=== PATIENT | male | born 1960 | race Caucasian/White ===

== ENCOUNTER 2021-07-13 13:34 | Emergency (ER) | payer MEDICAID, SELFPAY ==
[2021-07-13] VITALS (7 sets, daily range): BP systolic 101–117; BP diastolic 69–80; PULSE 64–95; RESP 16–23; TEMP 36.8–39; O2SAT 91–97; BMI 28.7
--- NOTE | 2021-07-13 15:03 | XR_ITS ---
WS: [id number] XR chest 1V portable [id number] REASON FOR EXAM: covid, sob FINDINGS: The heart and mediastinum are within normal limits. Reticular and groundglass lung opacities in the left lower lung field most predominantly and similar abnormality in the peripheral right lower lung field. Degenerative spondylosis, moderate, in the mid and lower thoracic spine. XR/XR chest 1V portable [id number] IMPRESSION: Pulmonary opacities of unknown chronicity but very compatible with subacute Cov id pneumonitis.
[2021-07-13 17:10] LABS: Basophils % 0.2 %; Hematocrit 50.5 % (42.0-52.0); Hemoglobin 17.4 g/dL (11.7-16.6); Lymphocytes # 0.3 10^3/uL (0.8-4.8); Lymphocytes % 6.6 %; Mean Corpuscular HGB Conc 34.5 g/dL (30.0-36.0); Mean Corpuscular Hemoglobin 29.1 pg (28.0-34.0); Mean Corpuscular Volume 84.4 fl (80-94); Monocytes # 0.3 10^3/uL (0.2-0.9); Monocytes % 6.1 %; Neutrophils % 86.7 %; Nucleated Red Blood Cells % 0 %; Platelet Count 131 10^3/cmm (130-400); Red Blood Count 5.98 10^6/uL (4.1-5.3); Red Cell Distribution Width 12.1 % (12.1-15.1); White Blood Count 4.7 10^3/uL (4.0-10.0)
--- NOTE | 2021-07-13 17:25 | ED_ITS ---
HPI - General Adult General: Chief complaint: Shortness of Breath/Dyspnea Stated complaint: COVID POSTIVE, NOT EATEN IN 7 DAYS, VERY WEEK Time Seen by Provider: 07/13/21 16:55 History of Present Illness: CC: Shortness of breath, fever and generalized weakness HPI: This is a [60] yo patient w/ recent covid diagnosis 3 days ago presenting to the ED with worsneing malaise, generalized weakness, cough sputum production, and fever at home x 7days. Since onset of symptoms, has had some shortness of breath and decreased PO intake. NO recent travel. Endorses no sick contacts around. Denies nausea/vomiting/diarrhea. Denies chest pain, diaphoresis, other GI or complaints. Denies any pleuritic chest pain, recent surgery/immobilization/travel, or hematemesis or hx of VTE in the past. Onset: 7 days ago Duration: ongoing for the last 7 days Location: home Severity: moderate Associated symptoms: Reports dyspnea and malaise; Deny chest pain, nausea, rash, palpitations or vomiting Review of Systems Const: Reports: fever(s), chills, body aches, fatigue, malaise and other (generalized weakness) Eyes: Denies: change in vision ENMT: Denies: mouth pain Card: Denies: chest pain or palpitations Resp: Reports: dyspnea and non-productive cough GI: Denies: abdominal pain, nausea, vomiting or diarrhea : Denies: dysuria Musc: Denies: extremity pain Skin/Breast: Denies: rash or new lesions Neuro: Denies: weakness in extremities Psych: Reports: other (Normal mood) Dariusz/Lymph: Denies: easy bruising [facility] ED PFSH: Medical History (Updated 07/13/21 @ 17:35 by Mirian Bhagat MD) COVID Social History (Updated 07/13/21 @ 17:35 by Mirian Bhagat MD) Smoking and tobacco status: never smoked Alcohol intake: never Substance/Drug Use: never Physical Exam Const: COMMON NORMALS: alert HENMT: COMMON NORMALS: atraumatic HEAD & SCALP: atraumatic MOUTH: moist mucous membranes abnormal Eye: COMMON NORMALS: EOMs intact bilaterally and conjunctivae normal CONJUNCTIVA: Yes conjunctivae normal Neck/C-Spine: COMMON NORMALS: full ROM and supple Resp: OTHER: +Mild decreased breath sounds b/l Cardio: COMMON NORMALS: regular rate RATE: regular rate GI: COMMON NORMALS: Soft to palpation and non-tender PALPATION: Yes Soft to palpation Extremity: COMMON NORMALS: full ROM Neuro: SENSORIUM/ORIENTATION: Yes alert MOTOR EXAM: No Abnormal motor strength present and Other motor observations present (no focal motor deficits) Psych: COMMON NORMALS: speech normal SPEECH: Yes normal speech MOOD & AF FECT: Yes euthymic mood Course Vital Signs: Vital signs: Vital Signs Temperature 102.2 F H 07/13/21 14:13 Pulse Rate 66 07/13/21 19:22 Respiratory Rate 16 07/13/21 19:22 Blood Pressure 112/69 07/13/21 18:00 Pulse Oximetry 97 07/13/21 19:23 MDM - General Adult Medical Decision Making [60]yo patient presenting to the ED with shortness of breath, cough, and malaise concerning for worsening COVID symptoms . Given History, Exam, and Workup presentation most consistent with pneumonia.Presentation not consistent with PE, COPD exacerbation, Pneumothorax, TB, Atypical ACS, Esophageal Rupture, Toxic Exposure, Foreign Body Airway Obstruction. Workup: Intervention: Tylenol 1gram, 3L of NS, PO challenge, serial reassessment, oxygen, decadron, GI cocktail [7:43pm] On reassessment, XR findings of ground-glass opacity. Afebrile currently. Patient continues to satting well without oxygen per home oxygen assessment with respiratory therapy. I have given patient strict return precaution for any drops in the pulse ox to less than 88% while on oxygen. Patient agrees to monitor oxygen saturation and to come back to the ED if there is any drops in pulse ox reading despite oxygen use. In addition, I have given patient strict follow up with PCP in 24 hrs for reevaluation. Patient verbalizes understanding of all components of our discussion today and reassures me of follow up with PCP and close monitoring. Rx tylenol PRN fever/pain, zofran PRN nausea/vomiting Disposition: Discharge. Patient is given strict return precautions for any worsening dypsnea, changes in pulse ox numbers, any worsening fatigue, dehydration, generalized weakness, altered mental status, or any new or concerning issues. Lab Data : 07/13/21 17:00 07/13/21 17:31 Radiology Impressions Chest X-Ray 07/13/21 15:03 IMPRESSION: Pulmonary opacities of unknown chronicity but very compatible with subacute Covid pneumonitis. Laboratory Results WBC 4.7 10^3/uL (4.0-10.0) 07/13/21 17:00 RBC 5.98 10^6/uL (4.1-5.3) H 07/13/21 17:00 Hgb 17.4 g/dL (11.7-16.6) H 07/13/21 17:00 Hct 50.5 % (42.0-52.0) 07/13/21 17:00 MCV 84.4 fl (80-94) 07/13/21 17:00 MCH 29.1 pg (28.0-34.0) 07/13/21 17:00 MCHC 34.5 g/dL (30.0-36.0) 07/13/21 17:00 RDW 12.1 % (12.1-15.1) 07/13/21 17:00 Plt Count 131 10^3/cmm (130-400) 07/13/21 17:00 MPV 12.0 fL (7.4-10.4) H 07/13/21 17:00 Neut % (Auto) 86.7 % 07/13/21 17:00 Lymph % (Auto) 6.6 % 07/13/21 17:00 Barber % (Auto) 6.1 % 07/13/21 17:00 Eos % (Auto) 0.0 % 07/13/21 17:00 Baso % (Auto) 0.2 % 07/13/21 17:00 Neut # (Auto) 4.10 10^3/uL (1.8-7.7) 07/13/21 17:00 Lymph # (Auto) 0.3 10^3/uL (0.8-4.8) L 07/13/21 17:00 Barber # (Auto) 0.3 10^3/uL (0.2-0.9) 07/13/21 17:00 Eos # (Auto) 0.0 10^3/uL (0.0-0.8) 07/13/21 17:00 Baso # (Auto) 0.0 10^3/uL (0.0-0.1) 07/13/21 17:00 Nucleated RBC % (auto) 0 % 07/13/21 17:00 Nucleated RBCs # 0.0 /100WBC 07/13/21 17:00 Sodium 127 mmol/L (136-145) L 07/13/21 17:31 Potassium 4.3 mmol/L (3.5-5.1) 07/13/21 17:31 Chloride 93 mmol/L (98-107) L 07/13/21 17:31 Carbon Dioxide 20 mmol/L (22-29) L 07/13/21 17:31 Anion Gap 18.3 (5-19) 07/13/21 17:31 BUN 31 mg/dL (8-23) H 07/13/21 17:31 Creatinine 1.3 mg/dL (0.7-1.2) H 07/13/21 17:31 GFR Calculation 56.3 mL/min (90-130) L 07/13/21 17:31 Glucose 123 mg/dL (65-115) H 07/13/21 17:31 Calculated Osmolality 272 mOsm/kg (285-295) L 07/13/21 17:31 Lactic Acid 1.3 mmol/L (0.5-2.2) 07/13/21 17:00 Calcium 7.7 mg/dL (8.5-10.5) L 07/13/21 17:31 Total Bilirubin 0.9 mg/dL (0.15-1.2) 07/13/21 17:31 AST 44 U/L (0-40) H 07/13/21 17:31 ALT 29 U/L (0-41) 07/13/21 17:31 Alkaline Phosphatase 51 IU/L (40-130) 07/13/21 17:31 C-Reactive Protein 68.8 mg/L (0.0-4.9) H 07/13/21 17:31 Total Protein 6.9 g/dL (6.6-8.7) 07/13/21 17:31 Albumin 3.6 g/dL (3.5-5.2) 07/13/21 17:31 Globulin 3.3 g/dL (1.3-4.6) 07/13/21 17:31 Procalcitonin 0.64 ng/mL (0-0.5) H 07/13/21 17:31 Imaging Data Other Imaging: Radiologist's impression: Launch?Image [facility] [address] [place] [address] XRay Report Signed Patient: Brandon Renteria Unit #: [id number] : 1960 Age/Sex: 60 / M ADM Date: 07/13/21 Loc: ER Room/Bed: Attending Dr: Ordering Provider/Ordering MD: Jyotsna Hansen Date of Service: 07/13/21 Procedure(s): XR chest 1V portable [id number] Accession Number(s): [id number] Report Number: [id number] WS: [id number] XR chest 1V portable [id number] REASON FOR EXAM: covid, sob FINDINGS: The heart and mediastinum are within normal limits. Reticular and groundglass lung opacities in the left lower lung field most predominantly and similar abnormality in the peripheral right lower lung field. Degenerative spondylosis, moderate, in the mid and lower thoracic spine. XR/XR chest 1V portable [id number] IMPRESSION: Pulmonary opacities of unknown chronicity but very compatible with subacute Covid pneumonitis. ? ? Dictated By: Jarrod Rivera Jr, MD Signed By: Jarrod Rivera Jr, MD Signed Date/Time: 07/13/21 154 DD/ 154 Discharge Plan Discharge Patient Disposition: Home Clinical Impression: COVID, Acute dyspnea, Cough, Generalized weakness Condition: Stable Prescriptions: New Zofran 4 mg tablet 4 mg PO TID PRN (Reason: nausea and vomiting) 4 Days Qty: 12 0RF acetaminophen 500 mg tablet 500 mg PO Q6H PRN (Reason: pain) 5 Days Qty: 20 0RF Pepcid 20 mg tablet 20 mg PO BID PRN (Reason: abdominal pain) 10 Days Qty: 20 0RF Maalox Advanced 1,000-60 mg tablet,chewable 1 tab PO TID PRN (Reason: abdominal pain) 7 Days Qty: 21 0RF Discharge Orders: Discharge ED (Routine); Ordered 07/13/21 Ordered By: Mirian Bhagat Referrals: Lexie Parker MD [Family Provider] - Discharge Diet: Advance as tolerated Discharge Activity: Increase activity as tolerated Patient Instructions: COVID-19 (Coronavirus Disease 2019) (ED) Activity Restrictions/Additional Instructions: Come back to the emergency room if your symptoms worsen, have any shortness of breath, fever/chills, dehydration, inability tolerate food or drinks, any difficulty breathing, or any new or concerning complaints. Please return the emergency room if your pulse ox reads less than 88%. Our rifle case repairer will have you follow-up with a primary care provider in the next few days. You would be expected to have a phone call with our rifle case repairer who will put you on the schedule. Coding Level of Care Code ED Inventory And Pricing Associate for Lulg Fwd Exam Comprehensive
[2021-07-13 17:29] LABS: Lactic Sepsis W/Reflex 1.3 mmol/L (0.5-2.2)
[2021-07-13] MEDS: acetaminophen 500 mg Tablet 1000 MG PO (17:38)
[2021-07-13] MEDS: ondansetron 2 mg/ML SDV 2 mL 4 MG IVP (17:39)
[2021-07-13] MEDS: lidocaine 2% viscous 15 ML, aluminum-mag hydrox-simethicon 30 ML, sucralfate oral liq 1 GM PO (17:39)
[2021-07-13] MEDS: famotidine 20 mg/2 mL INJ IVP (17:40)
[2021-07-13] MEDS: sodium chloride 0.9% 1,000 ML 999 ML IV ×2 (17:40→18:19)
[2021-07-13 18:12] LABS: Alanine Aminotransferase 29 U/L (0-41); Albumin Level 3.6 g/dL (3.5-5.2); Alkaline Phosphatase 51 IU/L (40-130); Anion Gap 18.3 (5-19); Aspartate Amino Transferase 44 U/L (0-40); Blood Urea Nitrogen 31 mg/dL (8-23); C Reactive Protein 68.8 mg/L (0.0-4.9); Calcium 7.7 mg/dL (8.5-10.5); Carbon Dioxide 20 mmol/L (22-29); Chloride 93 mmol/L (98-107); Globulin 3.3 g/dL (1.3-4.6); Glomerular Filtration Rate 56.3 mL/min (90-130); Glucose 123 mg/dL (65-115); Osmolality Calculated 272 mOsm/kg (285-295); Potassium 4.3 mmol/L (3.5-5.1); Sodium 127 mmol/L (136-145); Total Bilirubin 0.9 mg/dL (0.15-1.2); Total Protein 6.9 g/dL (6.6-8.7)
[2021-07-13 18:19] LABS: Procalcitonin 0.64 ng/mL (0-0.5)
--- NOTE | 2021-07-14 13:50 | DCPLANNER ---
Addendum entered by Alina Aiken 07/22/21 13:22: Patient is not a patient of Dr. Parker, case repairer tried to call patient to discuss getting established with a primary care, unable to speak with patient at this time. Original Note: general store manager had message to speak with patient about scheduling a follow up appointment with his primary care physician. general store manager called the office of Dr. Parker, left a voicemail with his nurse that patient was seen in the ER and that patient is needing a follow up appointment with his primary care physician. general store manager will speak with the nurse, and will schedule a follow up appointment.
== END 2021-07-13 20:28 | disposition home or self-care (01) ==
PROVIDERS: Physician Assistant; Emergency Provider Emergency Medicine; Family Provider Family Medicine
DX: U07.1 COVID-19 (principal)
CPT/HCPCS: 36415; 71045; 80053; 83605; 84145; 85025; 86140; 96361; 96374; 96375; 99284; J2405; J3490; J7030

== ENCOUNTER 2021-07-18 11:12 | Inpatient (IN) | payer MEDICAID, SELFPAY ==
[2021-07-18] VITALS (7 sets, daily range): BP systolic 113–156; BP diastolic 78–93; PULSE 60–75; RESP 16–24; TEMP 36.3–37.2; O2SAT 85–99; BMI 28.0; BMI 26.9
--- NOTE | 2021-07-18 11:50 | XR_ITS ---
WS: [id number] PORTABLE CHEST HISTORY: dyspnea COMPARISON: 07/13/2021 Lung volumes are decreased. New interstitial thickening and increasing opacifications in the peripher y of both lungs. Most significant change is along the inferior LEFT lateral lung. No pneumothorax. No dense area of consolidation. No pleural effusion or pneumothorax. Cardiac size: Normal. Mediastinum/Aorta: Normal mediastinum. No osseous abnormality seen. XR/XR chest 1V portable [id number] IMPRESSION: 1. New, mild scattered bilateral interstitial opacifications, greatest on the LEFT. New since 07/13/2021. Correlate for Covid 19. Differential includes pneumon ia and pneumonitis. 2. No large area of dense consolidation.
--- NOTE | 2021-07-18 11:52 | CT_ITS ---
WS: [id number] CT CHEST ANGIOGRAPHY WITH REFORMATS HISTORY: Evaluate for pulmonary embolism. Short of breath. TECHNIQUE: Contiguous axial images are obtained through the chest during arterial injection of intrav enous contrast. Images are reconstructed to evaluate the pulmonary arteries. MIP imaging also reviewe d. All CT scans at [facility] use at least one of these dose optimization techniques: automat ed exposure control; mA and/or kV adjustment per patient size (includes targeted exams where dose is matched to clinical indication); or iterative reconstruction. CONTRAST: Omnipaque 350; 95 mL IV. DLP: 597.99 mGy.cm COMPARISON: None available. Good opacification of the pulmonary arteries. Central pulmonary arteries are well-opacified. There ar e filling defects within the pulmonary veins but no defects centrally within the arteries. Beyond the segmental branches the opacification becomes limited due to the airspace disease. If there are small pulmonary emboli they are very peripheral. Very slight atherosclerosis of the thoracic aorta. There are a few scattered calcifications. No aneurysm. Normal size pulmonary artery. No RIGHT heart strain. Very mild enlargement of the LEFT heart. No pericardial effusion. There is moderate bilateral peripheral areas of opacification. There is both groundglass opacificatio n and solid opacifications from pneumonia. Predominantly within the periphery in the lower lung field s. No effusion. No pneumomediastinum or pneumothorax. No adenopathy. Normal size spleen and liver. Negative gallbladder. Small hiatal hernia. Mild increase in thoracic kyphosis. CT/CT angio chest PE protcl [id number] IMPRESSION: 1. No pulmonary embolism through the segmental branches. Small peripheral embo li not excluded. 2. Peripheral groundglass opacifications and consolidations in the mid and low er lung santos. May be consistent with Covid 19. 3. No RIGHT heart strain. 4. No adenopathy.
--- NOTE | 2021-07-18 11:55 | W.ED.GENADLT ---
HPI - General Adult General: Chief complaint: COVID symptoms Stated complaint: COVID POSITIVE Time Seen by Provider: 07/18/21 11:38 History of Present Illness: CC: Shortness of breath, fatigue and generalized weakness HPI: This is a [60] yo patient w/ hx of COVID diagnosis on 07/10/2021 presenting to the ED with malaise, generalized weakness at home worsening since last visit to the ER. Since onset of symptoms, has had worsening generalized weakness, and decreased PO intake. They deny, patient's of family member took his pulse ox was noted that patient dropped to the low 80s while ambulating. Earlier this morning, patient went to see his primary care provider Dr. Parker and was told to come to the emergency room for evaluation of worsening covid symptoms. No recent travel. Endorses no sick contacts around. Denies nausea/vomiting/diarrhea. Denies chest pain, diaphoresis, other GI or complaints. Denies any pleuritic chest pain, recent surgery/immobilization/travel, or hematemesis or hx of VTE in the past. Onset: 8 days ago Duration: ongoing for the last 8 days Location: home Severity: moderate Associated symptoms: Reports dyspnea and malaise; Deny chest pain, nausea, rash, palpitations or vomiting Review of Systems Const: Reports: body aches, fatigue, malaise and other (generalized weakness); Denies: fever(s) or chills Eyes: Denies: change in vision ENMT: Denies: mouth pain Card: Denies: chest pain or palpitations Resp: Reports: dyspnea; Denies: non-productive cough GI: Reports: other (+decreased appetite); Denies: abdominal pain, nausea, vomiting or diarrhea : Denies: dysuria Musc: Denies: extremity pain Skin/Breast: Denies: rash or new lesions Neuro: Denies: weakness in extremities Psych: Reports: other (Normal mood) Dariusz/Lymph: Denies: easy bruising PFSH ED PFSH: Medical History COVID Social History Smoking and tobacco status: never smoked Alcohol intake: never Physical Exam Const: COMMON NORMALS: alert HENMT: COMMON NORMALS: atraumatic HEAD & SCALP: atraumatic MOUTH: moist mucous membranes not abnormal Eye: COMMON NORMALS: EOMs intact bilaterally and conjunctivae normal CONJUNCTIVA: Yes conjunctivae normal Neck/C-Spine: COMMON NORMALS: full ROM and supple Resp: COMMON NORMALS: normal respiratory effort AUSCULTATION: other (+decrease breath sounds, +coarse breath sounds b/l) Cardio: COMMON NORMALS: regular rate RATE: regular rate GI: COMMON NORMALS: Soft to palpation and non-tender PALPATION: Yes Soft to palpation Extremity: COMMON NORMALS: full ROM Neuro: SENSORIUM/ORIENTATION: Yes alert MOTOR EXAM: No Abnormal motor strength present and Other motor observations present (no focal motor deficits) Psych: COMMON NORMALS: speech normal SPEECH: Yes normal speech MOOD & AFFECT: Yes euthymic mood Course Vital Signs: Vital signs: Vital Signs Temperature 99.0 F 07/18/21 13:25 Pulse Rate 65 07/18/21 13:25 Respiratory Rate 22 H 07/18/21 13:25 Blood Pressure 117/79 07/18/21 13:25 Pulse Oximetry 93 07/18/21 13:25 MDM - General Adult Medical Decision Making [60]yo patient presenting to the ED with shortness of breath, cough, and malaise and increased oxygen requirement since onset of COVID symptoms. On room air, patient is noted to be satting at 92-94%. However, upon ambulation, patient was noted to need more than 4L of oxygen with oxygen saturation of 85% on RA. Given History, Exam, and Workup presentation most consistent with pneumonia.Presentation not consistent with PE, COPD exacerbation, Pneumothorax, TB, Atypical ACS, Esophageal Rupture, Toxic Exposure, Foreign Body Airway Obstruction. Workup: XR Chest, COVID PCR Intervention: Tylenol 1gram, PO challenge, serial reassessment, oxygen, decadron, remdesivir [2:18pm] On reassessment, XR findings of ground-glass opacity worsening. Findings consistent with viral pneumonia, suspected COVID pneumonia.Patient continues to be in moderate respiratory distress with increased work of breathing and tachypnea. O2 sats > 95% on 3L at rest and 4L with ambulation while observed in the ED. Patient is noted to be hemocentrated with hemoglobin of 17.8. Case was discussed with Dr. Parker who agrees that patient should be admitted for increased oxygen requirement and dehydration. I have offered admission and the patient agrees with the plan. Patient continues to AAOx3, without significant increased work of breathing and I do not suspect the patient will decompensate on the wards requiring invasive and non-invasive positive pressure ventilation. Disposition: Admission Lab Data : 07/18/21 12:55 07/18/21 12:55 Radiology Impressions Chest X-Ray 07/18/21 11:50 IMPRESSION: 1. New, mild scattered bilateral interstitial opacifications, greatest on the LEFT. New since 07/13/2021. Correlate for Covid 19. Differential includes pneumonia and pneumonitis. 2. No large area of dense consolidation. Chest CTA 07/18/21 11:52 IMPRESSION: 1. No pulmonary embolism through the segmental branches. Small peripheral emboli not excluded. 2. Peripheral groundglass opacifications and consolidations in the mid and lower lung santos. May be consistent with Covid 19. 3. No RIGHT heart strain. 4. No adenopathy. Laboratory Results WBC 6.4 10^3/uL (4.0-10.0) 07/18/21 12:55 RBC 6.03 10^6/uL (4.1-5.3) H 07/18/21 12:55 Hgb 17.8 g/dL (11.7-16.6) H 07/18/21 12:55 Hct 52.0 % (42.0-52.0) 07/18/21 12:55 MCV 86.2 fl (80-94) 07/18/21 12:55 MCH 29.5 pg (28.0-34.0) 07/18/21 12:55 MCHC 34.2 g/dL (30.0-36.0) 07/18/21 12:55 RDW 12.1 % (12.1-15.1) 07/18/21 12:55 Plt Count 323 10^3/cmm (130-400) 07/18/21 12:55 MPV 10.1 fL (7.4-10.4) 07/18/21 12:55 Neut % (Auto) 78.6 % 07/18/21 12:55 Lymph % (Auto) 8.4 % 07/18/21 12:55 Mcdonald % (Auto) 10.6 % 07/18/21 12:55 Eos % (Auto) 0.5 % 07/18/21 12:55 Baso % (Auto) 0.3 % 07/18/21 12:55 Neut # (Auto) 5.05 10^3/uL (1.8-7.7) 07/18/21 12:55 Lymph # (Auto) 0.5 10^3/uL (0.8-4.8) L 07/18/21 12:55 Mcdonald # (Auto) 0.7 10^3/uL (0.2-0.9) 07/18/21 12:55 Eos # (Auto) 0.0 10^3/uL (0.0-0.8) 07/18/21 12:55 Baso # (Auto) 0.0 10^3/uL (0.0-0.1) 07/18/21 12:55 Nucleated RBC % (auto) 0 % 07/18/21 12:55 Nucleated RBCs # 0.0 /100WBC 07/18/21 12:55 Specimen Type Arterial 07/18/21 12:00 Sample Site Radial, left 07/18/21 12:00 ABG pH 7.50 (7.35-7.45) H 07/18/21 12:00 ABG pCO2 33.6 mmHg (35-45) L 07/18/21 12:00 ABG pO2 62.5 mmHg (80.0-100.0) L 07/18/21 12:00 ABG HCO3 26.2 mmol/L (22-26) H 07/18/21 12:00 ABG Base Excess 3.6 mmol/L (-2.0-2.0) H 07/18/21 12:00 Pepe Test Pos 07/18/21 12:00 Hematocrit 51.5 % (42-52) 07/18/21 12:00 O2 Delivery Device Nc 07/18/21 12:00 FiO2 32.0 % 07/18/21 12:00 Labor Operator ID Ed 07/18/21 12:00 Blood Gas Notified Time section housekeeper 07/18/21 12:00 Sodium 135 mmol/L (136-145) L 07/18/21 12:55 Potassium 4.0 mmol/L (3.5-5.1) 07/18/21 12:55 Chloride 97 mmol/L (98-107) L 07/18/21 12:55 Carbon Dioxide 22 mmol/L (22-29) 07/18/21 12:55 Anion Gap 20.0 (5-19) H 07/18/21 12:55 BUN 20 mg/dL (8-23) 07/18/21 12:55 Creatinine 0.8 mg/dL (0.7-1.2) 07/18/21 12:55 GFR Calculation 98.6 mL/min (90-130) 07/18/21 12:55 Glucose 106 mg/dL (65-115) 07/18/21 12:55 Calculated Osmolality 283 mOsm/kg (285-295) L 07/18/21 12:55 Calcium 8.3 mg/dL (8.5-10.5) L 07/18/21 12:55 C-Reactive Protein 105.3 mg/L (0.0-4.9) H 07/18/21 12:55 Procalcitonin 0.27 ng/mL (0-0.5) 07/18/21 12:55 Imaging Data Other Imaging: Radiologist's impression: [address] [address] [address] Scan Report Signed Patient: Brandon Renteria Unit #: [id number] : 1960 Age/Sex: 60 / M ADM Date: 07/18/21 Loc: ER Room/Bed: Attending Dr: Ordering Provider/Ordering MD: Mirian Bhagat MD Date of Service: 07/18/21 Procedure(s): CT angio chest PE protcl [id number] Accession Number(s): [id number] Report Number: [id number] WS: [id number] CT CHEST ANGIOGRAPHY WITH REFORMATS HISTORY: Evaluate for pulmonary embolism. Short of breath. TECHNIQUE: Contiguous axial images are obtained through the chest during arterial injection of intravenous contrast. Images are reconstructed to evaluate the pulmonary arteries. MIP imaging also reviewed.? [facility] scans at [facility] use at least one of these dose optimization techniques: automated exposure control; mA and/or kV adjustment per patient size (includes targeted exams where dose is matched to clinical indication); or iterative reconstruction. CONTRAST: Omnipaque 350; 95 mL IV. DLP: 597.99 mGy.cm COMPARISON: None available. Good opacification of the pulmonary arteries. Central pulmonary arteries are well-opacified. There are filling defects within the pulmonary veins but no defects centrally within the arteries. Beyond the segmental branches the opacification becomes limited due to the airspace disease. If there are small pulmonary emboli they are very peripheral. Very slight atherosclerosis of the thoracic aorta. There are a few scattered calcifications. No aneurysm. Normal size pulmonary artery. No RIGHT heart strain. Very mild enlargement of the LEFT heart. No pericardial effusion. There is moderate bilateral peripheral areas of opacification. There is both groundglass opacification and solid opacifications from pneumonia. Predominantly within the periphery in the lower lung santos. No effusion. No pneumomediastinum or pneumothorax. No adenopathy. Normal size spleen and liver. Negative gallbladder. Small hiatal hernia. Mild increase in thoracic kyphosis. CT/CT angio chest PE protcl [id number] IMPRESSION: ? 1.? No pulmonary embolism through the segmental branches. Small peripheral emboli not excluded. 2.? Peripheral groundglass opacifications and consolidations in the mid and lower lung santos. May be consistent with Covid 19. 3.? No RIGHT heart strain. 4.? No adenopathy. ? ? ? Dictated By: Sandra Blum DO Signed By: Sandra Blum DO Signed Date/Time: 07/18/21 1317 DD/ [address] [address] XRay Report Signed Patient: Brandon Renteria Unit #: [id number] : 1960 Age/Sex: 60 / M ADM Date: 07/18/21 Loc: ER Room/Bed: Attending Dr: Ordering Provider/Ordering MD: Mirian Bhagat MD Date of Service: 07/18/21 Procedure(s): XR chest 1V portable [id number] Accession Number(s): [id number] Report Number: [id number] WS: [email or web address] PORTABLE CHEST HISTORY: dyspnea COMPARISON: 07/13/2021 Lung volumes are decreased. New interstitial thickening and increasing opacifications in the periphery of both lungs. Most significant change is along the inferior LEFT lateral lung. No pneumothorax. No dense area of consolidation. No pleural effusion or pneumothorax. Cardiac size: Normal. Mediastinum/Aorta: Normal mediastinum. No osseous abnormality seen. XR/XR chest 1V portable [id number] IMPRESSION: ? 1.? New, mild scattered bilateral interstitial opacifications, greatest on the LEFT. New since 07/13/2021. Correlate for Covid 19. Differential includes pneumonia and pneumonitis. 2.? No large area of dense consolidation. ? ? ? Dictated By: Sandra Blum DO Signed By: Sandra Blum DO Signed Date/Time: 07/18/21 1202 DD/ 1200 Discharge Plan Discharge Patient Disposition: Admitted As Inpatient Clinical Impression: Dehydration, Hypoxemia, Generalized weakness, Fatigue, 2019 novel coronavirus-infected pneumonia (NCIP) Condition: Stable Coding Level of Care Code ED Gm for Lulg Fwd Exam Comprehensive
[2021-07-18] MEDS: iodixanol 320 mg/mL 100mL Btl IV (13:09)
[2021-07-18 13:10] LABS: Basophils % 0.3 %; Eosinophils % 0.5 %; Hemoglobin 17.8 g/dL (11.7-16.6); Lymphocytes # 0.5 10^3/uL (0.8-4.8); Lymphocytes % 8.4 %; Mean Corpuscular HGB Conc 34.2 g/dL (30.0-36.0); Mean Corpuscular Hemoglobin 29.5 pg (28.0-34.0); Mean Corpuscular Volume 86.2 fl (80-94); Mean Platelet Volume 10.1 fL (7.4-10.4); Monocytes # 0.7 10^3/uL (0.2-0.9); Monocytes % 10.6 %; Neutrophils # 5.05 10^3/uL (1.8-7.7); Neutrophils % 78.6 %; Nucleated Red Blood Cells % 0 %; Platelet Count 323 10^3/cmm (130-400); Red Blood Count 6.03 10^6/uL (4.1-5.3); Red Cell Distribution Width 12.1 % (12.1-15.1); White Blood Count 6.4 10^3/uL (4.0-10.0)
[2021-07-18] MEDS: acetaminophen 500 mg Tablet 1000 MG PO (13:29)
[2021-07-18] MEDS: dexamethasone 10 mg/mL INJ 6 MG IVP (13:29)
[2021-07-18 13:35] LABS: ABG PCO2 33.6 mmHg (35-45); Base Excess ABG 3.6 mmol/L (-2.0-2.0); Blood Gas Allen Test POS; Blood Gas Operator Identificat ED; HCO3 ABG 26.2 mmol/L (22-26); Oxygen Device NC; PO2 ABG 62.5 mmHg (80.0-100.0)
[2021-07-18 13:36] LABS: Arterial Blood Gas Hematocrit 51.5 % (42-52); Blood Gas Sample Site Radial, left; Blood Gas Sample Type Arterial
[2021-07-18 13:54] LABS: Blood Urea Nitrogen 20 mg/dL (8-23); C Reactive Protein 105.3 mg/L (0.0-4.9); Calcium 8.3 mg/dL (8.5-10.5); Carbon Dioxide 22 mmol/L (22-29); Chloride 97 mmol/L (98-107); Glomerular Filtration Rate 98.6 mL/min (90-130); Glucose 106 mg/dL (65-115); Osmolality Calculated 283 mOsm/kg (285-295); Sodium 135 mmol/L (136-145)
[2021-07-18] MEDS: remdesivir 200 MG in sodium chloride 0.9% (100 ml) 60 ML 100 MG IV (14:00)
[2021-07-18 14:01] LABS: Procalcitonin 0.27 ng/mL (0-0.5)
[2021-07-18] MEDS: sodium chloride 0.9% 1,000 ML 999 ML IV ×2 (14:31→15:48)
--- NOTE | 2021-07-18 15:07 | P.HP_ITS ---
Providers/Chief Complaint Admitting Physician: Leonarda Mcduffie Primary Care Provider: Lexie Parker MD Chief Complaint: COVID POSITIVE History of Present Illness Brandon Renteria is a 60 year old male who presented to the emergency room with chief complaint of low oxygen levels, general malaise and weakness and not feeling well at all. His symptoms began a few days after Ivan and before New Year's although he is not able to tell me the exact date. 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 Within a couple of days, he says that it hit me like a Jay[employer] truck . He has had fever, chills, cough which is rarely productive, chest congestion. Denies any headache, runny nose, sore throat, chest pain, nausea, vomiting, diarrhea. No abdominal pain. He is not sure if he has lost his sense of taste or smell. Does describe having no appetite and not eating or drinking very much. He has become progressively weaker and he has been confused at times. Not sleeping well. No reported falls but difficulty with dizziness when he stands up. He was originally seen on July 10 after positive home test for COVID. Additional Covid testing is reported as having been sent at that time but no results are available in the computer. He presented to the emergency room on July 13 with worsening symptoms and low oxygen levels. Saturations ranged from 91 to 97% on room air. Saturations as documented were 96% after 6-minute exercise test on room air that evening. He received 1 dose of Decadron as well as some IV fluids that evening and was discharged home. Since that time he has continued to worsen with intermittent hypoxemia noted. He was seen at another facility where he was given a prescription for dexamethasone and a azithromycin. Today he was seen by Dr. Parker who has known him for many years. At the clinic saturations were 84% on room air. Patient was initially reluctant to come back to the hospital here after experiencing the emergency room last week but he did ultimately agree. He was requiring up to 4 L of oxygen in the ER. Chest x-ray shows increasing bilateral infiltrates. Procalcitonin was low. CRP was noted to be up from approximately 50 the last time to 105. Patient received additional dexamethasone and was given some remdesivir. He is being admitted for further evaluation and treatment as indicated. He is not COVID vaccinated. He does not have any chronic medical problems and rarely goes to the doctor. Review of Systems Const: Reports: fever(s), chills, body aches, change in appetite, change in weight, fatigue, malaise and other (Not sleeping well) Eyes: Denies: change in vision ENMT: Reports: dry mouth and other (Possible loss of taste and smell); Denies: throat pain, nasal congestion or sinus pain Card: Reports: palpitations, lightheadedness, dyspnea on exertion and orthopnea; Denies: chest pain, edema, syncope or acrocyanosis Resp: Reports: dyspnea, productive cough (Rarely productive), non-productive cough, wheezing and chest congestion; Denies: pain on inspiration or hemoptysis GI: Reports: other (Has not had a bowel movement in several days); Denies: abdominal pain, nausea, vomiting, diarrhea, hematochezia or melena : Denies: oliguria Musc: Reports: joint stiffness and muscle weakness; Denies: joint pain or joint swelling Skin/Breast: Denies: rash, pruritus or sores Neuro: Reports: weakness in extremities (general rather than focal), dizziness and difficulty communicating thoughts; Denies: headache(s), numbness in extremities, difficulty walking or involuntary movements Psych: Reports: anxiety Dariusz/Lymph: Denies: easy bleeding Medications/Allergies Home Medications Medication Instructions Recorded Confirmed Last Taken Type No Known Home Medications 07/18/21 07/18/21 Unknown History Allergies Allergy/AdvReac Type Severity Reaction Status Date / Time No Known Drug Allergies Allergy Unknown Verified 07/18/21 09:12 PFSH Acute PFSH: Medical History (Updated 07/18/21 @ 18:41 by Leonarda Mcduffie MD) COVID (~07/10/21) No pertinent past medical history Surgical History (Updated 07/18/21 @ 18:23 by Leonarda Mcduffie MD) No pertinent past surgical history Family History (Updated 07/18/21 @ 18:23 by Leonarda Mcduffie MD) Denies family history of Diabetes CAD (coronary artery disease) Chronic kidney disease (CKD) Stroke Social History (Updated 07/18/21 @ 18:24 by Leonarda Mcduffie MD) Smoking and tobacco status: never smoked Alcohol intake: never Substance/Drug Use: never Lives independently: Yes Marital status: Current occupational status: employed 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 conjunctiva injected, no rhinorrhea rhinorrhea, dry mucous membranes Neck: supple Respiratory: bilateral wheezes, scattered crackles, tachypnea notable when he tries to talk more, no retractions at rest but has to pause after a few words Cardiovascular: regular rhythm, no murmurs, rubs or gallops, no acrocyanosis Abdomen: soft, non tender, positive bowel sounds Extremities: no pitting edema, no calf tenderness, no cyanosis Skin: dry, no rashes or bruising, has 2 scabbed/dried blood sores below his lower lip on the right side with no active bleeding, each approximately 4 mm in diameter Neuro: face symmetric, speech clear though slow, moves all extremities but generally weak, no abnormal movements Psych: cooperative Data : 07/18/21 12:55 07/18/21 12:55 Other Labs: Radiology Impressions Chest X-Ray 07/18/21 11:50 IMPRESSION: 1. New, mild scattered bilateral interstitial opacifications, greatest on the LEFT. New since 07/13/2021. Correlate for Covid 19. Differential includes pneumonia and pneumonitis. 2. No large area of dense consolidation. Chest CTA 07/18/21 11:52 IMPRESSION: 1. No pulmonary embolism through the segmental branches. Small peripheral emboli not excluded. 2. Peripheral groundglass opacifications and consolidations in the mid and lower lung santos. May be consistent with Covid 19. 3. No RIGHT heart strain. 4. No adenopathy. Laboratory Results WBC 6.4 10^3/uL (4.0-10.0) 07/18/21 12:55 RBC 6.03 10^6/uL (4.1-5.3) H 07/18/21 12:55 Hgb 17.8 g/dL (11.7-16.6) H 07/18/21 12:55 Hct 52.0 % (42.0-52.0) 07/18/21 12:55 MCV 86.2 fl (80-94) 07/18/21 12:55 MCH 29.5 pg (28.0-34.0) 07/18/21 12:55 MCHC 34.2 g/dL (30.0-36.0) 07/18/21 12:55 RDW 12.1 % (12.1-15.1) 07/18/21 12:55 Plt Count 323 10^3/cmm (130-400) 07/18/21 12:55 MPV 10.1 fL (7.4-10.4) 07/18/21 12:55 Neut % (Auto) 78.6 % 07/18/21 12:55 Lymph % (Auto) 8.4 % 07/18/21 12:55 [place] % (Auto) 10.6 % 07/18/21 12:55 Eos % (Auto) 0.5 % 07/18/21 12:55 Baso % (Auto) 0.3 % 07/18/21 12:55 Neut # (Auto) 5.05 10^3/uL (1.8-7.7) 07/18/21 12:55 Lymph # (Auto) 0.5 10^3/uL (0.8-4.8) L 07/18/21 12:55 [place] # (Auto) 0.7 10^3/uL (0.2-0.9) 07/18/21 12:55 Eos # (Auto) 0.0 10^3/uL (0.0-0.8) 07/18/21 12:55 Baso # (Auto) 0.0 10^3/uL (0.0-0.1) 07/18/21 12:55 Nucleated RBC % (auto) 0 % 07/18/21 12: Nucleated RBCs # 0.0 /100WBC 07/18/21 12:55 Specimen Type Arterial 07/18/21 12:00 Sample Site Radial, left 07/18/21 12:00 ABG pH 7.50 (7.35-7.45) H 07/18/21 12:00 ABG pCO2 33.6 mmHg (35-45) L 07/18/21 12:00 ABG pO2 62.5 mmHg (80.0-100.0) L 07/18/21 12:00 ABG HCO3 26.2 mmol/L (22-26) H 07/18/21 12:00 ABG Base Excess 3.6 mmol/L (-2.0-2.0) H 07/18/21 12:00 Pepe Test Pos 07/18/21 12:00 Hematocrit 51.5 % (42-52) 07/18/21 12:00 O2 Delivery Device Nc 07/18/21 12:00 FiO2 32.0 % 07/18/21 12:00 Reading Interventionist ID Ed 07/18/21 12:00 Blood Gas Notified Time laborer stores 07/18/21 12:00 Sodium 135 mmol/L (136-145) L 07/18/21 12:55 Potassium 4.0 mmol/L (3.5-5.1) 07/18/21 12:55 Chloride 97 mmol/L (98-107) L 07/18/21 12:55 Carbon Dioxide 22 mmol/L (22-29) 07/18/21 12:55 Anion Gap 20.0 (5-19) H 07/18/21 12:55 BUN 20 mg/dL (8-23) 07/18/21 12:55 Creatinine 0.8 mg/dL (0.7-1.2) 07/18/21 12:55 GFR Calculation 98.6 mL/min (90-130) 07/18/21 12:55 Glucose 106 mg/dL (65-115) 07/18/21 12:55 Calculated Osmolality 283 mOsm/kg (285-295) L 07/18/21 12:55 Calcium 8.3 mg/dL (8.5-10.5) L 07/18/21 12:55 C-Reactive Protein 105.3 mg/L (0.0-4.9) H 07/18/21 12:55 Procalcitonin 0.27 ng/mL (0-0.5) 07/18/21 12:55 A&P Assessment and plan (1) Pneumonia due to COVID-19 virus: Dexamethasone - started on oral dexamethasone x 5 days on 07/11/21, given one dose IV on 07/13 in ED and again on 07/18. Plan for 3-5 additional days. Remdesivir started 07/18 Oxygen therapy at 4L [facility] presently, adjust as needed Respiratory therapy to follow Pulmonary toilet, flutter, incentive spirometer Check additional baseline inflammatory markers/labs Pro calcitonin 0.64 (2/), 0.27 (07/18) CRP 68.8 (2/), 105.3 (07/18) CTA done 07/18, no evidence of PE Vitamin C, vitamin D, zinc Covid antigen test ordered given we have no positive test result in our computer system but patient is notated to have had a positive home test in several prior visits for this illness Monitor closely for clinical change Status: Acute (2) Hypoxemia: secondary to covid, will need to monitor for volume overload as a contributer as well Status: Acute (3) COVID-19 vaccination not done: Status: Acute Plan Recheck labs in the morning H2 yudith for GI prophylaxis Lovenox for DVT prophylaxis Supportive care otherwise Currently anticipate discharge home, possibly with oxygen therapy, however it will ultimately depend on clinical course Findings, concerns and plans, including treatment with Remdesivir were discussed with patient as well as his daughter, both given an opportunity to ask questions Full code presently. Patient indicated to Dr. Parker that he does not want to be intubated but he is not acknowledging nor denying that during my conversation with him. He has no chronic medical conditions and is acutely ill with COVID- 19. 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 Will need to discuss again tomorrow. Attestations Medical Necessity Statement*: Anticipate stay greater than 2 midnights in patient with covid, requiring oxygen and other care as noted above. At high risk of rapid clinical decline given persistence of significant symptoms and new oxygen requirement. Coding Level of Care Code Acute Lurer for [facility] Fwd Diagnoses Hypoxemia R09.02 Pneumonia due to COVID-19 virus U07.1; J12.82 COVID-19 vaccination not done Z28.9
[2021-07-18] MEDS: lidocaine 2% viscous 15 ML, aluminum-mag hydrox-simethicon 30 ML, sucralfate oral liq 1 GM PO (15:47)
[2021-07-18 17:27] LABS: D Dimer 1.02 ug/mIFEU (0-0.59)
[2021-07-18 17:33] LABS: Cholesterol 126 mg/dL (0-200); Creatine Phosphokinase 26 U/L (39-308); HDL Cholesterol 35 mg/dL (60-100); LDL Cholesterol Calculated 65 mg/dL (50-129); LDL HDL Ratio 1.86 RATIO (0.00-3.22); NT Pro B Type Natriuretic Pept 91 pg/mL (0-125); Triglycerides 129 mg/dL (0-150)
[2021-07-18 17:34] LABS: Troponin T (5th) Once 6 ng/L (0-15)
[2021-07-18 17:38] LABS: Lactic Sepsis W/Reflex 1.2 mmol/L (0.5-2.2)
[2021-07-18 17:51] LABS: Ferritin 2978 ng/mL (30-400)
[2021-07-18] MEDS: famotidine 20 mg Tablet PO (18:36)
[2021-07-18] MEDS: ascorbic acid 500 mg Tablet 1000 MG PO (18:36)
[2021-07-18] MEDS: enoxaparin 40 mg/0.4 mL Syringe SUBCUT (18:36)
[2021-07-18] MEDS: lactated ringers 1,000 ML 75 ML IV (18:36)
[2021-07-19] VITALS (12 sets, daily range): BP systolic 111–143; BP diastolic 72–80; PULSE 57–69; RESP 16–20; TEMP 36.3–37; O2SAT 91–98
--- NOTE | 2021-07-19 03:59 | PC.NURSE ---
i reported low temp 97.5 and low pulse 57 to nurse
[2021-07-19 06:07] LABS: Basophils % 0.2 %; Hematocrit 45.8 % (42.0-52.0); Hemoglobin 15.3 g/dL (11.7-16.6); Lymphocytes # 0.5 10^3/uL (0.8-4.8); Mean Corpuscular HGB Conc 33.4 g/dL (30.0-36.0); Mean Corpuscular Hemoglobin 28.9 pg (28.0-34.0); Mean Corpuscular Volume 86.4 fl (80-94); Mean Platelet Volume 10.6 fL (7.4-10.4); Monocytes # 0.6 10^3/uL (0.2-0.9); Monocytes % 12.4 %; Neutrophils # 3.49 10^3/uL (1.8-7.7); Neutrophils % 75.9 %; Nucleated Red Blood Cells % 0 %; Platelet Count 339 10^3/cmm (130-400); Red Cell Distribution Width 12.1 % (12.1-15.1); White Blood Count 4.6 10^3/uL (4.0-10.0)
[2021-07-19 06:35] LABS: Alanine Aminotransferase 27 U/L (0-41); Albumin Level 2.8 g/dL (3.5-5.2); Alkaline Phosphatase 52 IU/L (40-130); Blood Urea Nitrogen 22 mg/dL (8-23); C Reactive Protein 106.1 mg/L (0.0-4.9); Calcium 7.1 mg/dL (8.5-10.5); Carbon Dioxide 23 mmol/L (22-29); Chloride 100 mmol/L (98-107); Globulin 3.4 g/dL (1.3-4.6); Glomerular Filtration Rate 137.4 mL/min (90-130); Glucose 105 mg/dL (65-115); Magnesium 2.4 mg/dL (1.7-2.3); Osmolality Calculated 284 mOsm/kg (285-295); Phosphorus 3.8 mg/dL (2.5-4.5); Sodium 135 mmol/L (136-145); Total Bilirubin 1.1 mg/dL (0.15-1.2); Total Protein 6.2 g/dL (6.6-8.7)
[2021-07-19 07:01] LABS: Anion Gap 16.7 (5-19); Potassium 4.7 mmol/L (3.5-5.1)
[2021-07-19 07:02] LABS: Aspartate Amino Transferase 32 U/L (0-40)
[2021-07-19] MEDS: famotidine 20 mg Tablet PO ×2 (09:45→18:03)
[2021-07-19] MEDS: ascorbic acid 500 mg Tablet 1000 MG PO (09:45)
[2021-07-19] MEDS: zinc gluconate 50 mg Tablet PO (09:45)
[2021-07-19] MEDS: cholecalciferol (vitamin D3) 1,000 unit Tablet 2000 UNIT PO (09:45)
--- NOTE | 2021-07-19 10:47 | USCV_ITS ---
Brandon Renteria Age: 60 Gender: M : 1960 Exam Date: 07/19/2021 14:11 Ordering Phys: Ronni Lozano MD Technologist: CARMENCITA Exam Location: [facility] [place] Indication: COVID isolation. Possible pulmonary embolus. Evaluate for right heart strain. BP: 127 / 80 HR: 61 Rhythm: Sinus Technical Quality: Adequate MEASUREMENTS (Male / Female) Normal Values 2D ECHO LV Diastolic Diameter PLAX 4.6 cm 4.2 - 5.9 / 3.9 - 5.3 cm LV Systolic Diameter PLAX 2.6 cm IVS Diastolic Thickness 1.2 cm 0.6 - 1.0 / 0.6 - 0.9 cm IVS Systolic Thickness 2.0 cm LVPW Diastolic Thickness 1.3 cm 0.6 - 1.0 / 0.6 - 0.9 cm LVPW Systolic Thickness 1.6 cm LVOT Diameter 2.1 cm LV Ejection Fraction 2D Teich 73.4 % LV Ejection Fraction MOD 2C 62.3 % LV Ejection Fraction 2C AL 65.8 % LA Diameter 3.8 cm LA Width 3.2 cm LA Height 5.8 cm RA Width 3.2 cm RA Height 3.9 cm Aorta at Sinotubular Diameter 3.5 cm M-MODE Aortic Annulus Diameter 3.4 cm LA Ao Ratio MM 1.2 MV E Point Septal Separation 0.2 cm DOPPLER AV Peak Velocity 120.0 cm/s LVOT Peak Velocity 84.0 cm/s AV Area Cont Eq vti 2.8 cm squared AV Area Cont Eq pk 2.4 cm squared MV Peak Velocity 89.0 cm/s MV Area PHT 5.0 cm squared Mitral E to A Ratio 0.8 MV E' Velocity 31.5 cm/s Mitral E to MV E' Ratio 6.7 Mitral E to LV E' Lateral Ratio 7.6 Mitral E to LV E' Septal Ratio 6.1 TR Peak Velocity 271.0 cm/s TR Peak Gradient 29.4 mmHg TV Peak E Velocity 33.0 cm/s Right Atrial Pressure 5.0 mmHg Pulmonary Artery Systolic Pressu 34.4 mmHg PV Peak Velocity 85.0 cm/s RV Acceleration Time 0.1 s RV Ejection Time 0.4 s RV AcT/ET 0.3 FINDINGS Left Ventricle Normal left ventricular size, systolic function and wall thickness, with no regional wall motion abnormalities. Left ventricular ejection fraction is estimated at 70-75 %. Normal diastolic function. Right Ventricle Normal right ventricular size and systolic function. RVSP could not be calculated due to incomplete tricuspid regurgitation velocity profile. Right Atrium Normal right atrial size. Left Atrium Normal left atrial size. Mitral Valve Structurally normal mitral valve. No mitral valve stenosis. No mitral valve regurgitation. Aortic Valve Structurally normal trileaflet aortic valve. No aortic valve stenosis. No aortic valve regurgitation. Tricuspid Valve Structurally normal tricuspid valve. Trace tricuspid valve regurgitation. Pulmonic Valve Pulmonic valve not well visualized. No pulmonary valve stenosis. Trace pulmonary valve regurgitation. Pericardium No pericardial effusion. Aorta Normal sized aortic root. CONCLUSIONS 1. Normal left ventricular size, systolic function and wall thickness, with no regional wall motion abnormalities. Left ventricular ejection fraction is estimated at 70-75 %. Normal diastolic function. 2. Normal right ventricular size and systolic function. 3. No significant valvular abnormality. 4. No prior similar studies to compare. Amirah Alvarado MD (Electronically Signed) Final Date: 19 July 2021 22:59 S
[2021-07-19 11:32] LABS: Thyroid Stimulating Hormone 0.58 uIU/mL (0.27-4.20)
[2021-07-19] MEDS: ipratropium-albuterol 3 mL Neb INHALATION ×3 (11:33→20:29)
[2021-07-19 11:34] LABS: Iron 76 ug/dL (59-158)
[2021-07-19] MEDS: enoxaparin 80 mg/0.8 mL Syringe SUBCUT (11:37)
[2021-07-19] MEDS: dexamethasone 4 mg/mL INJ 6 MG IVP (11:37)
--- NOTE | 2021-07-19 12:22 | PM.PN ---
Subjective Subjective: No acute events overnight. Patient seen comfortably sitting in bed. On 3 L saturating 90 to 92%. He states he is feeling better than yesterday. Appetite is appropriate. He states usually he is very active and mobile but currently is not able to do so which is very frustrating to him. We discussed that going forward he should take day by day and try and increase his activity again and eventually within next few weeks he should be able to go back to his baseline. He is working well with I-S and Acapella. He is looking forward to doing more I-S and Acapella today. Discussed about proning to semiproning when in bed. Vitals/I&O/Wt Last Vital Signs Temp 98.6 F 07/19/21 07:17 Pulse 69 07/19/21 11:39 Resp 18 07/19/21 11:33 BP 127/80 07/19/21 07:17 Pulse Ox 91 07/19/21 11:33 07/18/21 07/19/21 07/19/21 22:59 06:59 14:59 Intake Total 2059 / 2059 Output Total 760 / 760 400 / 1160 Balance 1300 / 1300 -400 / 900 Weight last 48 hrs Weight 85.23 kg Weight 86.183 kg Physical Exam Narrative: Constitutional: alert but struggles to provide answers to some questions, oriented to person, place and situation, ill appearing HEENT: normocephalic. conjunctiva injected, no rhinorrhea rhinorrhea, dry mucous membranes Neck: supple Respiratory: bilateral wheezes, scattered crackles, tachypnea notable when he tries to talk more, no retractions at rest but has to pause after a few words Cardiovascular: regular rhythm, no murmurs, rubs or gallops, no acrocyanosis Abdomen: soft, non tender, positive bowel sounds Extremities: no pitting edema, no calf tenderness, no cyanosis Skin: dry, no rashes or bruising, has 2 scabbed/dried blood sores below his lower lip on the right side with no active bleeding, each approximately 4 mm in diameter Neuro: face symmetric, speech clear though slow, moves all extremities but generally weak, no abnormal movements Psych: cooperative Data : 07/19/21 04:32 07/19/21 04:32 A&P Assessment and plan (1) Pneumonia due to COVID-19 virus: Status: Acute (2) Hypoxemia: secondary to covid, will need to monitor for volume overload as a contributer as well Status: Acute (3) COVID-19 vaccination not done: Status: Acute Plan Hypoxic respiratory failure secondary to COVID-19 pneumonia: Moderate disease. Oxygen supplementation keeping saturation over 88%. As per the family patient tested positive on 07/10. Will request results from [facility]. Dexamethasone 6 mg daily. Will do overall 10-day course Remdesivir to finish a 5-day course. Vitamin C, zinc. Start on DuoNebs every 6 hour, budesonide twice daily Pulmonary toilet with incentive spirometry flutter valve. We will monitor inflammatory markers including CRP, D-dimer every 48 hours. If inflammation markers continue to remain elevated will dose 1 Actemra tomorrow Patient was made aware of the same and he has given verbal consent. D-dimer elevated. CTA negative for pulmonary embolism in bigger vessels but cannot exclude in smaller vessels. For now we will start patient on full dose anticoagulation with full dose Lovenox at 1 mg/kg body weight every 12 hourly. Will monitor for anemia or blood loss. Most likely patient would need to be on anticoagulation for at least 2 weeks post discharge Check sputum culture, urine Legionella, bacterial antigen, blood culture. Procalcitonin negative. Low suspicion of bacterial infection for now. For now will do Levaquin for 5 days. Given hypoxia will try to keep patient as negative as possible. Hold off on any IV hydration or diuresis for now. Strict input output charting, daily weights. Full code. Regular diet. Full dose Lovenox will help with DVT prophylaxis. Famotidine for PUD prophylaxis. Patient's care discussed in detail with his daughter over the phone. All the questions were answered. 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
[2021-07-19 12:41] LABS: Percent Saturation 55.4 % (20-50); Total Iron Binding Capacity 137 mcg/dl; Unsaturated Iron Binding 61 ug/dL (112-347)
[2021-07-19] MEDS: levoFLOXacin 500 mg Tablet PO (13:30)
[2021-07-19] MEDS: ascorbic acid 500 mg Tablet PO (18:03)
[2021-07-19] MEDS: ferrous gluconate 324 mg Tablet PO (18:03)
[2021-07-19] MEDS: remdesivir 100 MG in sodium chloride 0.9% (100 ml) 80 ML IV (18:03)
[2021-07-19] MEDS: budesonide 0.5 mg/2 mL Neb INHALATION (20:29)
[2021-07-20] VITALS (12 sets, daily range): BP systolic 111–135; BP diastolic 69–85; PULSE 66–89; RESP 17–22; TEMP 36.5–36.7; O2SAT 90–97
[2021-07-20] MEDS: enoxaparin 80 mg/0.8 mL Syringe SUBCUT ×3 (00:58→23:47)
[2021-07-20] MEDS: ipratropium-albuterol 3 mL Neb INHALATION ×4 (02:10→20:25)
[2021-07-20] MEDS: levoFLOXacin 500 mg Tablet PO (05:31)
[2021-07-20 05:50] LABS: Basophils % 0.1 %; Eosinophils % 0.3 %; Hematocrit 43.1 % (42.0-52.0); Hemoglobin 14.4 g/dL (11.7-16.6); Lymphocytes # 0.8 10^3/uL (0.8-4.8); Lymphocytes % 10.6 %; Mean Corpuscular HGB Conc 33.4 g/dL (30.0-36.0); Mean Corpuscular Hemoglobin 29.1 pg (28.0-34.0); Mean Corpuscular Volume 87.2 fl (80-94); Mean Platelet Volume 10.1 fL (7.4-10.4); Monocytes # 0.7 10^3/uL (0.2-0.9); Monocytes % 9.3 %; Neutrophils # 5.95 10^3/uL (1.8-7.7); Neutrophils % 78.1 %; Nucleated Red Blood Cells % 0 %; Platelet Count 438 10^3/cmm (130-400); Red Blood Count 4.94 10^6/uL (4.1-5.3); Red Cell Distribution Width 12.3 % (12.1-15.1); White Blood Count 7.6 10^3/uL (4.0-10.0)
[2021-07-20 06:00] LABS: Partial Thromboplastin Time 34.1 SECONDS (23.9-36.7)
--- NOTE | 2021-07-20 06:00 | XR_ITS ---
WS: [id number] XR chest 1V portable [id number] REASON FOR EXAM: covid FINDINGS: The chest is unchanged compared to 12/28/2021. Mild tortuosity and ectasia of the thoracic aorta without aneurysmal dilatation. No significant cardiomegaly. Lower lung field and peripheral lung field reticular interstitial opacities and patchy groundglass op acities. No new findings. XR/XR chest 1V portable [id number] IMPRESSION: Stable abnormal chest.
[2021-07-20 06:02] LABS: D Dimer 0.55 ug/mIFEU (0-0.59)
[2021-07-20 06:12] LABS: Alanine Aminotransferase 22 U/L (0-41); Albumin Level 2.7 g/dL (3.5-5.2); Alkaline Phosphatase 46 IU/L (40-130); Anion Gap 16.4 (5-19); Aspartate Amino Transferase 19 U/L (0-40); Blood Urea Nitrogen 24 mg/dL (8-23); C Reactive Protein 49.1 mg/L (0.0-4.9); Calcium 7.4 mg/dL (8.5-10.5); Carbon Dioxide 21 mmol/L (22-29); Chloride 101 mmol/L (98-107); Chol HDL Ratio 2.85 mg/dL (1.0-5.00); Cholesterol 97 mg/dL (0-200); Globulin 3.4 g/dL (1.3-4.6); Glucose 115 mg/dL (65-115); HDL Cholesterol 34 mg/dL (60-100); LDL Cholesterol Calculated 50 mg/dL (50-129); Osmolality Calculated 285 mOsm/kg (285-295); Potassium 3.4 mmol/L (3.5-5.1); Sodium 135 mmol/L (136-145); Total Bilirubin 0.5 mg/dL (0.15-1.2); Total Protein 6.1 g/dL (6.6-8.7); Triglycerides 63 mg/dL (0-150); VLDL Cholestrol Calculation 13 mg/dL (0-30)
[2021-07-20] MEDS: budesonide 0.5 mg/2 mL Neb INHALATION ×2 (08:10→20:25)
[2021-07-20] MEDS: famotidine 20 mg Tablet PO ×2 (09:25→17:34)
[2021-07-20] MEDS: fluticasone nasal spray 16gm Btl 1 SPRAY NASAL (09:25)
[2021-07-20] MEDS: ferrous gluconate 324 mg Tablet PO ×2 (09:25→17:34)
[2021-07-20] MEDS: cholecalciferol (vitamin D3) 1,000 unit Tablet 2000 UNIT PO (09:25)
[2021-07-20] MEDS: zinc gluconate 50 mg Tablet PO (09:25)
[2021-07-20] MEDS: ascorbic acid 500 mg Tablet PO (09:25)
--- NOTE | 2021-07-20 10:21 | P.PN_ITS ---
Subjective Subjective: No current overnight. Denies any nausea, pain, headache. Ambulating well in the room. Down to 2 to 3 L at rest on ambulation saturating more than 95%. Discussed in detail with the patient regarding use of I-S and Acapella. He verbalized understanding. Vitals/I&O/Wt Last Vital Signs Temp 97.7 F 07/20/21 07:54 Pulse 76 07/20/21 08:10 Resp 18 07/20/21 08:10 BP 129/76 07/20/21 07:54 Pulse Ox 97 07/20/21 08:10 07/19/21 07/20/21 07/20/21 22:59 06:59 14:59 Intake Total 200 / 450 Output Total 500 / 500 300 / 300 Balance 200 / 450 -500 / -50 -300 / -300 Weight last 48 hrs Weight 85.23 kg Weight 86.183 kg Physical Exam Narrative: Constitutional: No acute distress, AO x3, less tachypneic and tachycardic on exertion HEENT: normocephalic. conjunctiva injected, no rhinorrhea rhinorrhea, dry mucous membranes Neck: supple Respiratory: bilateral wheezes, scattered crackles, tachypnea notable when he tries to talk more, no retractions at rest but has to pause after a few words Cardiovascular: regular rhythm, no murmurs, rubs or gallops, no acrocyanosis Abdomen: soft, non tender, positive bowel sounds Extremities: no pitting edema, no calf tenderness, no cyanosis Skin: dry, no rashes or bruising, has 2 scabbed/dried blood sores below his lower lip on the right side with no active bleeding, each approximately 4 mm in diameter Neuro: face symmetric, speech clear though slow, moves all extremities but generally weak, no abnormal movements Psych: cooperative Data : 07/20/21 04:30 07/20/21 04:30 Micro: Microbiology 07/20/21 04:25 Blood Culture - Preliminary Blood SPECIMEN COLLECTED 07/20/21 04:30 Blood Culture - Preliminary Blood SPECIMEN COLLECTED A&P Assessment and plan (1) Pneumonia due to COVID-19 virus: Status: Acute (2) Hypoxemia: secondary to covid, will need to monitor for volume overload as a contributer as well Status: Acute (3) COVID-19 vaccination not done: Status: Acute Plan Hypoxic respiratory failure secondary to COVID-19 pneumonia: Moderate disease. Oxygen supplementation keeping saturation over 88%. Covid positive on 07/10. Dexamethasone 6 mg daily. Will do overall 10-day course Remdesivir to finish a 5-day course. Vitamin C, zinc. DuoNebs every 6 hour, budesonide twice daily Pulmonary toilet with incentive spirometry flutter valve. We will monitor inflammatory markers including CRP, D-dimer every 48 hours. For now as oxygen requirements are coming down we will hold off on Actemra. If inflammation markers continue to remain elevated or if oxygen requirements go up will dose 1 Actemra tomorrow. Patient was made aware of the same and he has given verbal consent. D-dimer elevated. CTA negative for pulmonary embolism in bigger vessels but cannot exclude in smaller vessels. For now we will start patient on full dose anticoagulation with full dose Lovenox at 1 mg/kg body weight every 12 hourly. Will monitor for anemia or blood loss. Most likely patient would need to be on anticoagulation for at least 2 weeks post discharge Check sputum culture, urine Legionella, bacterial antigen, blood culture. Procalcitonin negative. Low suspicion of bacterial infection for now. For now will do Levaquin for 5 days. Given hypoxia will try to keep patient as negative as possible. Hold off on any IV hydration or diuresis for now. Strict input output charting, daily weights. CODE STATUS: Discussed in detail with patient again. He states he is okay with intubation and chest compressions if it comes to that but would not want to live on a ventilator for long-term. Full code. Regular diet. Full dose Lovenox will help with DVT prophylaxis. Famotidine for PUD prophylaxis. Plan for day: Continue remdesivir, aggressive incentive spirometry and flutter valve. Ambulation. Try to wean oxygen supplementation keeping saturation over 88%. 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
[2021-07-20] MEDS: dexamethasone 4 mg/mL INJ 6 MG IVP (11:31)
[2021-07-20] MEDS: remdesivir 100 MG in sodium chloride 0.9% (100 ml) 80 ML IV (17:33)
[2021-07-20 21:34] LABS: Add Urine Microscopic? YES; Bilirubin Urine 1+ (Negative); Blood Urine Neg (Negative); Glucose Urine UA 2+ (Normal); Ketones Urine Negative (Negative); Leukocyte Esterase Urine Negative (Negative); Nitrate Urine Negative (Negative); Protein Urine Trace (Negative); Specific Gravity, Urine 1.025 (1.005-1.030); Urine Appearance Clear (CLEAR); Urine Color Amber (Yellow); Urobilinogen Urine 4 mg/dL (Negative); pH Urine 5 (5-7)
[2021-07-20 21:35] LABS: Add Urine Culture? No; Amorphous Sediment Urine 1+ /hpf; Bacteria Urine TRACE /hpf; Mucus Urine 1+ /hpf; RBC Urine 0-4 /hpf (0-2); Squamous Epithelial Cell Urine 0-4 /hpf (0-5); WBC Urine 0-4 /hpf (0-5)
[2021-07-21] VITALS (12 sets, daily range): BP systolic 100–135; BP diastolic 64–86; PULSE 67–81; RESP 16–18; TEMP 36.6–36.7; O2SAT 91–98
[2021-07-21] MEDS: ipratropium-albuterol 3 mL Neb INHALATION ×4 (02:33→20:42)
[2021-07-21 05:33] LABS: Basophils % 0.4 %; Eosinophils % 0.6 %; Hematocrit 42.5 % (42.0-52.0); Hemoglobin 14.2 g/dL (11.7-16.6); Lymphocytes # 0.9 10^3/uL (0.8-4.8); Lymphocytes % 17.5 %; Mean Corpuscular HGB Conc 33.4 g/dL (30.0-36.0); Mean Corpuscular Volume 86.9 fl (80-94); Mean Platelet Volume 9.6 fL (7.4-10.4); Monocytes # 0.6 10^3/uL (0.2-0.9); Monocytes % 10.7 %; Neutrophils # 3.61 10^3/uL (1.8-7.7); Neutrophils % 67.8 %; Nucleated Red Blood Cells % 0 %; Platelet Count 485 10^3/cmm (130-400); Red Blood Count 4.89 10^6/uL (4.1-5.3); Red Cell Distribution Width 12.4 % (12.1-15.1); White Blood Count 5.3 10^3/uL (4.0-10.0)
[2021-07-21 05:58] LABS: Alanine Aminotransferase 24 U/L (0-41); Albumin Level 2.5 g/dL (3.5-5.2); Alkaline Phosphatase 49 IU/L (40-130); Blood Urea Nitrogen 19 mg/dL (8-23); Calcium 6.8 mg/dL (8.5-10.5); Carbon Dioxide 25 mmol/L (22-29); Chloride 102 mmol/L (98-107); Globulin 3.4 g/dL (1.3-4.6); Glucose 98 mg/dL (65-115); Osmolality Calculated 286 mOsm/kg (285-295); Sodium 137 mmol/L (136-145); Total Bilirubin 0.5 mg/dL (0.15-1.2); Total Protein 5.9 g/dL (6.6-8.7)
[2021-07-21 05:59] LABS: Anion Gap 13.9 (5-19); Aspartate Amino Transferase 27 U/L (0-40); Potassium 3.9 mmol/L (3.5-5.1)
[2021-07-21 06:02] LABS: Procalcitonin 0.25 ng/mL (0-0.5)
[2021-07-21] MEDS: levoFLOXacin 500 mg Tablet PO (06:31)
[2021-07-21] MEDS: budesonide 0.5 mg/2 mL Neb INHALATION ×2 (08:07→20:42)
[2021-07-21] MEDS: cholecalciferol (vitamin D3) 1,000 unit Tablet 2000 UNIT PO (09:02)
[2021-07-21] MEDS: ascorbic acid 500 mg Tablet PO ×2 (09:02→17:41)
[2021-07-21] MEDS: zinc gluconate 50 mg Tablet PO (09:02)
[2021-07-21] MEDS: ferrous gluconate 324 mg Tablet PO ×2 (09:03→17:28)
[2021-07-21] MEDS: famotidine 20 mg Tablet PO ×2 (09:03→17:28)
[2021-07-21] MEDS: fluticasone nasal spray 16gm Btl 1 SPRAY NASAL (09:03)
[2021-07-21] MEDS: enoxaparin 80 mg/0.8 mL Syringe SUBCUT ×2 (12:24→22:00)
[2021-07-21] MEDS: dexamethasone 4 mg/mL INJ 6 MG IVP (12:24)
--- NOTE | 2021-07-21 12:55 | P.PN_ITS ---
Subjective Subjective: No acute events overnight. Denies any nausea, vomiting, headache. Yesterday was trying to be off oxygen for the day. Walked around in the room went to the bathroom off oxygen. Later during the day patient was found to have saturations in the low eighties Patient was asymptomatic during that time. Today morning on examination he is on 2 L saturating 93%. Vitals/I&O/Wt Last Vital Signs Temp 98.1 F 07/21/21 12:00 Pulse 67 07/21/21 12:00 Resp 17 07/21/21 12:00 BP 124/75 07/21/21 12:00 Pulse Ox 96 07/21/21 12:00 07/20/21 07/21/21 07/21/21 22:59 06:59 14:59 Intake Total 240 / 240 480 / 720 220 / 220 Output Total 225 / 525 490 / 1015 200 / 200 Balance 15 / -285 -10 / -295 20 / 20 Physical Exam Narrative: Constitutional: No acute distress, AO x3, less tachypneic and tachycardic on exertion HEENT: normocephalic. conjunctiva injected, no rhinorrhea rhinorrhea, dry mucous membranes Neck: supple Respiratory: bilateral wheezes, scattered crackles, tachypnea notable when he tries to talk more, no retractions at rest but has to pause after a few words Cardiovascular: regular rhythm, no murmurs, rubs or gallops, no acrocyanosis Abdomen: soft, non tender, positive bowel sounds Extremities: no pitting edema, no calf tenderness, no cyanosis Skin: dry, no rashes or bruising, has 2 scabbed/dried blood sores below his lower lip on the right side with no active bleeding, each approximately 4 mm in diameter Neuro: face symmetric, speech clear though slow, moves all extremities but generally weak, no abnormal movements Psych: cooperative Data : 07/21/21 04:16 07/21/21 04:16 Micro: Microbiology 07/19/21 21:15 Bacterial Antigens - Final Urine Kidney 07/20/21 04:25 Blood Culture - Preliminary Blood NEGATIVE TO DATE 07/20/21 04:30 Blood Culture - Preliminary Blood NEGATIVE TO DATE 07/20/21 21:15 Legionella Urinary Antigen - Final Urine,Voided 07/19/21 18:13 MRSA Culture - Final Nose A&P Assessment and plan (1) Pneumonia due to COVID-19 virus: Status: Acute (2) Hypoxemia: secondary to covid, will need to monitor for volume overload as a contributer as well Status: Acute (3) COVID-19 vaccination not done: Status: Acute Plan Hypoxic respiratory failure secondary to COVID-19 pneumonia: Moderate disease. Oxygen supplementation keeping saturation over 88%. Covid positive on 07/10. Dexamethasone 6 mg daily. Will do overall 10-day course Remdesivir to finish a 5-day course. Vitamin C, zinc. DuoNebs every 6 hour, budesonide twice daily Pulmonary toilet with incentive spirometry flutter valve. We will monitor inflammatory markers including CRP, D-dimer every 48 hours. CRP is trending down. Will repeat tomorrow. D-dimer elevated. CTA negative for pulmonary embolism in bigger vessels but cannot exclude in smaller vessels. For now we will start patient on full dose anticoagulation with full dose Lovenox at 1 mg/kg body weight every 12 hourly. Will monitor for anemia or blood loss. Most likely patient would need to be on anticoagulation for at least 2 weeks post discharge Check sputum culture, urine Legionella, bacterial antigen, blood culture. Procalcitonin negative. Low suspicion of bacterial infection for now. For now will do Levaquin for 5 days. Given hypoxia will try to keep patient as negative as possible. Hold off on any IV hydration or diuresis for now. Strict input output charting, daily weights. CODE STATUS: Discussed in detail with patient again. He states he is okay with intubation and chest compressions if it comes to that but would not want to live on a ventilator for long-term. Full code. Regular diet. Full dose Lovenox will help with DVT prophylaxis. Famotidine for PUD prophylaxis. Plan for day: Continue remdesivir, dexamethasone and aggressive pulmonary toilet. Last dose of remdesivir tomorrow. Home O2 evaluation post last dose. If oxygen requirements are less than 4 L can plan to discharge home. Patient's care discussed in detail with patient and his daughter over the phone. All the questions were answered. Attestations Medical Necessity Statement*: Requires further hospitalization for management of hypoxia secondary COVID-19 pneumonia, Time Spent in Patient Care: Greater than 35 minutes Coding Level of Care Code Acute Senior Network Security Architect for [facility] Diagnoses Pneumonia due to COVID-19 virus U07.1; J12.82 Hypoxemia R09.02 COVID-19 vaccination not done Z28.9
--- NOTE | 2021-07-21 15:26 | PC.RESP ---
RT Shift Note Frequent safety and respiratory rounds continue. Orders completed as indicated. Patient monitored pre and post treatments throughout shift. Patient [Did.] tolerate treatments appropriately. Condition [.DidNotChange]. Patient and/or footwear sales representative educated on respiratory treatment and medications. Patient and/or footwear sales representative [verbalized understanding]. Will continue to monitor patient progress.
[2021-07-21] MEDS: remdesivir 100 MG in sodium chloride 0.9% (100 ml) 80 ML IV (17:28)
[2021-07-22] VITALS (8 sets, daily range): BP systolic 122–136; BP diastolic 70–92; PULSE 68–76; RESP 15–17; TEMP 36.7–37.2; O2SAT 87–95
[2021-07-22] MEDS: ipratropium-albuterol 3 mL Neb INHALATION ×2 (04:07→08:52)
[2021-07-22 05:19] LABS: D Dimer 0.29 ug/mIFEU (0-0.59)
[2021-07-22 05:26] LABS: C Reactive Protein 40.1 mg/L (0.0-4.9)
[2021-07-22] MEDS: levoFLOXacin 500 mg Tablet PO (05:38)
--- NOTE | 2021-07-22 06:00 | XR_ITS ---
WS: [id number] XR chest 1V portable [id number] REASON FOR EXAM: covid FINDINGS: Bilateral lung opacities. Compared to previous examination of 07/20/2021, the peripheral lung opacities in the right lung have be come somewhat more dense and confluent. Left lung unchanged. No other significant interval change or new finding. XR/XR chest 1V portable [id number] IMPRESSION: Minimal change in the bilateral lung opacities as above.
[2021-07-22] MEDS: budesonide 0.5 mg/2 mL Neb INHALATION (08:52)
--- NOTE | 2021-07-22 09:00 | PC.RESP ---
RT Shift Note Frequent safety and respiratory rounds continue. Orders completed as indicated. Patient monitored pre and post treatments throughout shift. Patient [Did.] tolerate treatments appropriately. Condition [.DidNotChange]. Patient and/or customer response representative educated on respiratory treatment and medications. Patient and/or customer response representative [verbalized understanding]. Will continue to monitor patient progress.
--- NOTE | 2021-07-22 11:01 | PM.DCS ---
Discharge Providers Date of Admission: 07/18/21 16:41 Date of Discharge: July 22, 2021 Attending Provider at Admission: Leonarda Mcduffie MD Attending Provider at Discharge: Ronni Lozano MD Primary Care Provider: Lexie Parker MD Diagnoses at Discharge Discharge Diagnosis (1) Pneumonia due to COVID-19 virus: Status: Acute (2) Hypoxemia: Status: Acute (3) COVID-19 vaccination not done: Status: Acute Reason for Visit Reason for Visit: COVID POSITIVE Hospital Course Hospital Course History as per HPI: Brandon Renteria is a 60 year old male with no syllabus medical history presented to the ER today because of weakness, diarrhea, difficulty in breathing which has been getting worse for last 5 days. Patient was tested positive for COVID-19 on 0 130 at [facility]. He presented to the ER few days ago and was sent home on 2 L of oxygenation. At home with oxygen supplementation was going up so he presented back to the ER. He is evaluated for further evaluation and management of hypoxia secondary to COVID-19 pneumonia. He was started on treatment with IV remdesivir, dexamethasone inhalation treatment. Patient did very well with aggressive pulmonary toilet with I-S and Acapella. His oxygen supplementation continue to trend down and on day of admission is requiring 1 L of oxygen supplementation on ambulation. He is been discharged hemodynamically stable condition with following advices. Advised to take inhalation treatment with Advair and Spiriva daily. Advised to continue using Eliquis which is a blood thinner for next 2 weeks. Advised to continue working with incentive spirometry and flutter valve while at home. Advised to continue taking dexamethasone 6 mg for next 10 days. Advised to follow-up with his primary care provider within the next 4 to 7 days. Can take his COVID-19 vaccination in 3 months. Advised to continue following social distancing and isolation protocol for next 10 days. Advised to come back to the ER if fever of more than 101 Fahrenheit, more difficulty breathing than usual or requiring higher oxygen supplementation. Physical Exam Narrative: Constitutional: No acute distress, AO x3, less tachypneic and tachycardic on exertion HEENT: normocephalic. conjunctiva injected, no rhinorrhea rhinorrhea, dry mucous membranes Neck: supple Respiratory: bilateral wheezes, scattered crackles, tachypnea notable when he tries to talk more, no retractions at rest but has to pause after a few words Cardiovascular: regular rhythm, no murmurs, rubs or gallops, no acrocyanosis Abdomen: soft, non tender, positive bowel sounds Extremities: no pitting edema, no calf tenderness, no cyanosis Skin: dry, no rashes or bruising, has 2 scabbed/dried blood sores below his lower lip on the right side with no active bleeding, each approximately 4 mm in diameter Neuro: face symmetric, speech clear though slow, moves all extremities but generally weak, no abnormal movements Psych: cooperative Discharge Data Studies Completed and Pending Completed Studies During Hospitalization Category Date Time Status CTA chest [CT angio chest PE protcl [id number]] Urgent Cat Scan 07/18/21 11:52 Completed XR chest 1V portable [id number] Q48H Exams 07/20/21 06:00 Completed XR chest 1V portable [id number] Q48H Exams 07/22/21 06:00 Completed XR chest 1V portable [id number] Urgent Exams 07/18/21 11:50 Completed CV. echo complete* [id number] Routine Ultrasound 07/19/21 10:47 Completed Pending at discharge Category Date Time Status XR chest 1V portable [id number] Q48H Exams 07/24/21 06:00 Ordered Blood Culture AM LABS Lab 07/20/21 04:25 Results Radiology Impressions Chest CTA 07/18/21 11:52 IMPRESSION: 1. No pulmonary embolism through the segmental branches. Small peripheral emboli not excluded. 2. Peripheral groundglass opacifications and consolidations in the mid and lower lung santos. May be consistent with Covid 19. 3. No RIGHT heart strain. 4. No adenopathy. Chest X-Ray 07/22/21 06:00 IMPRESSION: Minimal change in the bilateral lung opacities as above. Echocardiogram: ?CONCLUSIONS ?1. Normal left ventricular size, systolic function and wall ?thickness, with no regional wall motion abnormalities. Left ?ventricular ejection fraction is estimated at 70-75 %. Normal ?diastolic function. ?2. Normal right ventricular size and systolic function. ?3. No significant valvular abnormality. ?4. No prior similar studies to compare. ?Amirah Alvarado MD ?(Electronically Signed) ?Final Date:? ? ? 19 July 2021 ? 22:59 S Laboratory Results WBC 5.3 10^3/uL (4.0-10.0) 07/21/21 04:16 RBC 4.89 10^6/uL (4.1-5.3) 07/21/21 04:16 Hgb 14.2 g/dL (11.7-16.6) 07/21/21 04:16 Hct 42.5 % (42.0-52.0) 07/21/21 04:16 MCV 86.9 fl (80-94) 07/21/21 04:16 MCH 29.0 pg (28.0-34.0) 07/21/21 04:16 MCHC 33.4 g/dL (30.0-36.0) 07/21/21 04:16 RDW 12.4 % (12.1-15.1) 07/21/21 04:16 Plt Count 485 10^3/cmm (130-400) H 07/21/21 04:16 MPV 9.6 fL (7.4-10.4) 07/21/21 04:16 Neut % (Auto) 67.8 % 07/21/21 04:16 Lymph % (Auto) 17.5 % 07/21/21 04:16 [place] % (Auto) 10.7 % 07/21/21 04:16 Eos % (Auto) 0.6 % 07/21/21 04:16 Baso % (Auto) 0.4 % 07/21/21 04:16 Neut # (Auto) 3.61 10^3/uL (1.8-7.7) 07/21/21 04:16 Lymph # (Auto) 0.9 10^3/uL (0.8-4.8) 07/21/21 04:16 [place] # (Auto) 0.6 10^3/uL (0.2-0.9) 07/21/21 04:16 Eos # (Auto) 0.0 10^3/uL (0.0-0.8) 07/21/21 04:16 Baso # (Auto) 0.0 10^3/uL (0.0-0.1) 07/21/21 04:16 Nucleated RBC % (auto) 0 % 07/21/21 04:16 Nucleated RBCs # 0.0 /100WBC 07/21/21 04:16 PT 14.60 SECONDS (12.1-14.9) 07/18/21 17:07 INR 1.10 (0.8-1.2) 07/18/21 17:07 APTT 34.1 SECONDS (23.9-36.7) 07/20/21 04:30 D-Dimer 0.29 ug/mIFEU (0-0.59) 07/22/21 05:00 Specimen Type Arterial 07/18/21 12:00 Sample Site Radial, left 07/18/21 12:00 ABG pH 7.50 (7.35-7.45) H 07/18/21 12:00 ABG pCO2 33.6 mmHg (35-45) L 07/18/21 12:00 ABG pO2 62.5 mmHg (80.0-100.0) L 07/18/21 12:00 ABG HCO3 26.2 mmol/L (22-26) H 07/18/21 12:00 ABG Base Excess 3.6 mmol/L (-2.0-2.0) H 07/18/21 12:00 Pepe Test Pos 07/18/21 12:00 Hematocrit 51.5 % (42-52) 07/18/21 12:00 O2 Delivery Device Nc 07/18/21 12:00 FiO2 32.0 % 07/18/21 12:00 Occupational Safety And Health Manager ID Ed 07/18/21 12:00 Blood Gas Notified Time quill cleaner 07/18/21 12:00 Sodium 137 mmol/L (136-145) 07/21/21 04:16 Potassium 3.9 mmol/L (3.5-5.1) 07/21/21 04:16 Chloride 102 mmol/L (98-107) 07/21/21 04:16 Carbon Dioxide 25 mmol/L (22-29) 07/21/21 04:16 Anion Gap 13.9 (5-19) 07/21/21 04:16 BUN 19 mg/dL (8-23) 07/21/21 04:16 Creatinine 0.7 mg/dL (0.7-1.2) 07/21/21 04:16 GFR Calculation 115.0 mL/min (90-130) 07/21/21 04:16 Glucose 98 mg/dL (65-115) 07/21/21 04:16 Calculated Osmolality 286 mOsm/kg (285-295) 07/21/21 04:16 Lactic Acid 1.2 mmol/L (0.5-2.2) 07/18/21 17:07 Calcium 6.8 mg/dL (8.5-10.5) L 07/21/21 04:16 Phosphorus 3.8 mg/dL (2.5-4.5) 07/19/21 04:32 Magnesium 2.4 mg/dL (1.7-2.3) H 07/19/21 04:32 Iron 76 ug/dL (59-158) 07/19/21 04:32 TIBC 137 mcg/dl 07/19/21 04:32 % Saturation 55.4 % (20-50) H 07/19/21 04:32 Unsat Iron Binding 61 ug/dL (112-347) L 07/19/21 04:32 Ferritin 2978 ng/mL (30-400) H 07/18/21 12:55 Total Bilirubin 0.5 mg/dL (0.15-1.2) 07/21/21 04:16 AST 27 U/L (0-40) 07/21/21 04:16 ALT 24 U/L (0-41) 07/21/21 04:16 Alkaline Phosphatase 49 IU/L (40-130) 07/21/21 04:16 Creatine Kinase 26 U/L (39-308) L 07/18/21 12:55 Troponin T Gen 5 ng/L 6 ng/L (0-15) 07/18/21 12:55 C-Reactive Protein 40.1 mg/L (0.0-4.9) H 07/22/21 05:00 NT-Pro-B Natriuret Pep 91 pg/mL (0-125) 07/18/21 12:55 Total Protein 5.9 g/dL (6.6-8.7) L 07/21/21 04:16 Albumin 2.5 g/dL (3.5-5.2) L 07/21/21 04:16 Globulin 3.4 g/dL (1.3-4.6) 07/21/21 04:16 Triglycerides 63 mg/dL (0-150) 07/20/21 04:30 Cholesterol 97 mg/dL (0-200) 07/20/21 04:30 LDL Cholesterol, Calc 50 mg/dL (50-129) 07/20/21 04:30 Total VLDL Cholesterol 13 mg/dL (0-30) 07/20/21 04:30 HDL Cholesterol 34 mg/dL (60-100) L 07/20/21 04:30 LDL/HDL Ratio 1.86 RATIO (0.00-3.22) 07/18/21 12:55 Cholesterol/HDL Ratio 2.85 mg/dL (1.0-5.00) 07/20/21 04:30 Procalcitonin 0.25 ng/mL (0-0.5) 07/21/21 04:16 TSH 0.58 uIU/mL (0.27-4.20) 07/19/21 04:32 Urine Color [place] (Yellow) 07/20/21 21:15 Urine Appearance Clear (CLEAR) 07/20/21 21:15 Urine pH 5 (5-7) 07/20/21 21:15 Ur Specific [place] 1.025 (1.005-1.030) 07/20/21 21:15 Urine Protein Trace (Negative) 07/20/21 21:15 Urine Glucose (UA) 2+ (Normal) H 07/20/21 21:15 Urine Ketones Negative (Negative) 07/20/21 21:15 Urine Blood Neg (Negative) 07/20/21 21:15 Urine Nitrate Negative (Negative) 07/20/21 21:15 Urine Bilirubin 1+ (Negative) H 07/20/21 21:15 Urine Urobilinogen 4 mg/dL (Negative) H 07/20/21 21:15 Ur Leukocyte Esterase Negative (Negative) 07/20/21 21:15 Urine RBC 0-4 /hpf (0-2) H 07/20/21 21:15 Urine WBC 0-4 /hpf (0-5) H 07/20/21 21:15 Ur Squamous Epith Cells 0-4 /hpf (0-5) H 07/20/21 21:15 Amorphous Sediment 1+ /hpf 07/20/21 21:15 Urine Bacteria Trace /hpf (NONE) 07/20/21 21:15 Urine Mucus 1+ /hpf 07/20/21 21:15 Vitals Last Vital Signs Temp 99 F 07/22/21 08:00 Pulse 76 07/22/21 08:52 Resp 16 07/22/21 08:52 BP 127/77 07/22/21 08:00 Pulse Ox 87 L 07/22/21 10:10 Discharge Plan Discharge Patient Disposition: Home Condition: Stable Prescriptions: New famotidine 20 mg Tablet 20 mg PO BID 14 Days Qty: 28 0RF ascorbic acid (vitamin C) [Vitamin C] 500 mg Tablet 500 mg PO BID 14 Days Qty: 28 0RF zinc gluconate 50 mg Tablet 50 mg PO DAILY 14 Days Qty: 14 0RF levofloxacin 500 mg Tablet 500 mg PO DAILY@0600 Qty: 2 0RF ferrous gluconate 324 mg (37.5 mg iron) Tablet 324 mg PO BIDWM Qty: 60 0RF dexamethasone 6 mg tablet 6 mg PO Q24H Qty: 7 0RF Rx Instructions: for up to 10 days fluticasone propion-salmeterol [Advair Diskus] 250-50 mcg/dose blister with device 1 inh inhalation BID 14 Days Qty: 28 0RF Spiriva with HandiHaler 18 mcg capsule, w/inhalation device 1 cap inhalation DAILY Qty: 14 0RF Rx Instructions: puncture 1 cap using device; one dose = 2 inhalations No Action No Known Home Medications 0RF Rx Instructions: pt states he finished the z-pac and dexamethasone 4mg daily last week- rxs filled on 07/11/21 5d/s-pt states he takes no rx or otc medications Discharge Orders: Discharge Order (Routine); Ordered 07/22/21 Ordered By: Ronni Lozano Referrals: Lexie Parker MD [Primary Care Provider] - 7-10 days Discharge Diet: Usual diet Discharge Activity: Resume usual activity and Increase activity as tolerated Patient Instructions: Opioid Safety Activity Restrictions/Additional Instructions: Please take medicine as prescribed. Advised to take inhalation treatment with Advair and Spiriva daily. Advised to continue using Eliquis which is a blood thinner for next 2 weeks. Advised to continue working with incentive spirometry and flutter valve while at home. Advised to continue taking dexamethasone 6 mg for next 7 days. Advised to follow-up with his primary care provider within the next 4 to 7 days. Can take his COVID-19 vaccination in 3 months. Advised to continue following social distancing and isolation protocol for next 10 days. Advised to come back to the ER if fever of more than 101 Fahrenheit, more difficulty breathing than usual or requiring higher oxygen supplementation. Discharge Attestations Time Spent in Discharge Care*: greater than 30 min Specific Discharge Activities: educating patient, educating and/or supporting family/caregiver, discussing with pcp/other providers, discussing with spring encaser/social workers/dc planners, documenting/other paperwork and evaluating patient/reviewing data Status at Discharge: Cognitive status at discharge: cognitively intact, Behavioral status at discharge: cooperative, Functional status at discharge: independent ambulation, Overall status at discharge: patient is progressing back to baseline Quality Metrics Clinical Quality Measures [ No reported AMI, CVA or VTE this stay] Coding Level of Care Code Acute Chg FW DC note Diagnoses Pneumonia due to COVID-19 virus U07.1; J12.82 Hypoxemia R09.02 COVID-19 vaccination not done Z28.9
[2021-07-22] MEDS: ferrous gluconate 324 mg Tablet PO (11:32)
[2021-07-22] MEDS: famotidine 20 mg Tablet PO (11:32)
[2021-07-22] MEDS: zinc gluconate 50 mg Tablet PO (11:32)
[2021-07-22] MEDS: fluticasone nasal spray 16gm Btl 1 SPRAY NASAL (11:32)
[2021-07-22] MEDS: cholecalciferol (vitamin D3) 1,000 unit Tablet 2000 UNIT PO (11:32)
[2021-07-22] MEDS: dexamethasone 4 mg/mL INJ 6 MG IVP (12:40)
[2021-07-22] MEDS: enoxaparin 80 mg/0.8 mL Syringe SUBCUT (12:40)
[2021-07-22] MEDS: remdesivir 100 MG in sodium chloride 0.9% (100 ml) 80 ML IV (12:40)
== END 2021-07-22 14:15 | disposition designated cancer center or children's hospital (05) | DRG 177 ==
LOC: ER 15:02 → MEDSURG 17:11
PROVIDERS: Admitting Provider Hospitalist; Emergency Provider Emergency Medicine; PCP Family Medicine; Visit Provider Student in an Organized Health Care Education/Training Program
DX: U07.1 COVID-19 (principal); J12.82 Pneumonia due to coronavirus disease 2019; Z28.9 Immunization not carried out for unspecified reason
CPT/HCPCS: 36415; 71045; 71275; 80048; 80053; 80061; 81001; 82550; 82728; 82803; 83540; 83550; 83605; 83735; 83880; 84100; 84145; 84443; 84484; 85025; 85378; 85610; 85730; 86140; 86403; 87040; 87449; 87641; 93306; 94640; 96365; 96372; 96375; 99285; G0378; J1100; J1650; J7030; J7626; Q9967

== ENCOUNTER → 2021-08-09 09:59 | Outpatient (BNVA) | payer MEDICAID, SELFPAY | PROVIDERS: PCP Family Medicine; Visit Provider Family Medicine | DX: U07.1 COVID-19 (principal); J12.82 Pneumonia due to coronavirus disease 2019 | CPT/HCPCS: 71046 ==

== ENCOUNTER → 2021-09-06 15:07 | Outpatient (BNVA) | payer MEDICAID, SELFPAY | PROVIDERS: PCP Family Medicine; Visit Provider Family Medicine | DX: J12.82 Pneumonia due to coronavirus disease 2019 (principal); U07.1 COVID-19; R06.09 Other forms of dyspnea | CPT/HCPCS: 71046; 80053; 85025 ==